=== PATIENT | male | born 1975 | race Hispanic/Latino ===

== ENCOUNTER 2021-07-09 11:47 | Emergency (ER) | payer OTHER, SELFPAY ==
[2021-07-09] MEDS ORDERED: Dexamethasone 10 MG/ML VIAL ONE (13:14)
[2021-07-09] MEDS ORDERED: Ondansetron ODT 4 MG TAB ONE (13:15)
[2021-07-09] MEDS ORDERED: Ketorolac Tromethamine 30 MG/ML VIAL ONE (13:15)
[2021-07-09] MEDS ORDERED: Acetaminophen 500 MG TAB ONE (14:32)
[2021-07-10 14:04] LABS: SARS-CoV-2 PCR by NAA DETECTED (NotDetected)
== END 2021-07-09 14:55 | disposition home or self-care (01) ==
LOC: BURERS 11:47
DX: U07.1 COVID-19 (principal)
CPT/HCPCS: 71045; 87804; 96372; J1100; J1885; J7620; Q0162; U0003; U0005

== ENCOUNTER 2021-07-13 20:03 | Emergency (ER) | payer SELFPAY ==
[~2021-07-13 20:03] MED LIST: Iopamidol 370 76% 100 ML VIAL ONE
[2021-07-13] MEDS ORDERED: Acetaminophen 500 MG TAB ONE (20:39)
[2021-07-13] MEDS ORDERED: Ibuprofen 800 MG TAB ONE (20:39)
[2021-07-13 20:42] LABS: #Lymphocytes 0.6 thou/uL (1.20-3.40); #Monocytes 0.3 thou/uL (0.11-0.59); #Neutrophils 6.1 thou/uL (1.40-6.50); %Basophils 0.2 % (0.0-1.0); %Lymphocytes 8.2 % (21.0-51.0); %Monocytes 4.8 % (0.0-10.0); %Neutrophils 86.7 % (42.0-75.0); Hemoglobin 14.4 g/dL (14.0-18.0); Mean Corpuscular HGB CONC 33.6 g/dL (32.0-36.0); Mean Corpuscular Hemoglobin 31.1 pg (27.0-31.0); Mean Corpuscular Volume 92.6 fL (78.0-98.0); Mean Platelet Volume 7.7 fL (7.4-10.4); Platelet Count 190 thou/uL (130-400); RBC Distribution Width 12.2 % (11.5-14.5); Red Blood Cell (RBC) Count 4.63 mill/uL (4.70-6.10); White Blood Cell (WBC) Count 7.1 thou/uL (4.8-10.8)
[2021-07-13 20:52] LABS: Bilirubin Small (Negative); Blood, Urine Moderate (Negative); Clarity Clear (Clear); Glucose, Urine (Dipstick) Negative (Negative); Ketone, Urine Trace mg/dL (Negative); Leukocyte Negative (Negative); Nitrite Negative (Negative); Protein, Urine (Dipstick) > or equal to 300 mg/dL (Neg-Trace); Specific Gravity, Urine 1.025 (1.005-1.030); Urobilinogen 0.2 mg/dL (Less than 2)
[2021-07-13 21:02] LABS: Squamous Epithelial 0-3 HPF (0-3); WBC/HPF 0-3 HPF (0-3); Yeast-Budding Rare HPF (None Seen)
[2021-07-13 21:03] LABS: ALT (SGPT) 37 U/L (8-55); AST (SGOT) 31 U/L (5-34); Albumin 3.8 g/dL (3.5-5.0); Alkaline Phosphatase 50 U/L (40-110); Anion Gap 15 mmol/L (10-20); BUN (Urea Nitrogen) 16 mg/dL (8.9-20.6); Bilirubin, Total 0.4 mg/dL (0.2-1.2); Calc. Creatinine Clearance 0 mL/min (70-130); Carbon Dioxide 22 mmol/L (22-29); Chloride 104 mmol/L (98-107); Glucose 108 mg/dL (70-105); Potassium 3.7 mmol/L (3.5-5.1); Protein, Total 6.8 g/dL (6.0-8.3); Sodium 137 mmol/L (136-145)
== END 2021-07-13 22:56 | disposition home or self-care (01) ==
LOC: BURERS 20:03
DX: U07.1 COVID-19 (principal); J12.82 Pneumonia due to coronavirus disease 2019
CPT/HCPCS: 71275; 80053; 81003; 81015; 83605; 84484; 85025; 85379; 87040; 93005; 94760; Q9967

== ENCOUNTER 2021-07-14 10:42 | Emergency (ER) | payer SELFPAY ==
[2021-07-14] MEDS ORDERED: Dexamethasone 10 MG/ML VIAL ONE (11:27)
[2021-07-14 11:50] LABS: #Lymphocytes 0.5 thou/uL (1.20-3.40); #Monocytes 0.2 thou/uL (0.11-0.59); #Neutrophils 6.2 thou/uL (1.40-6.50); %Basophils 0.2 % (0.0-1.0); %Lymphocytes 7.7 % (21.0-51.0); %Monocytes 3.2 % (0.0-10.0); %Neutrophils 88.9 % (42.0-75.0); Hemoglobin 14.8 g/dL (14.0-18.0); Mean Corpuscular HGB CONC 33.3 g/dL (32.0-36.0); Mean Corpuscular Hemoglobin 30.8 pg (27.0-31.0); Mean Corpuscular Volume 92.5 fL (78.0-98.0); Mean Platelet Volume 8.3 fL (7.4-10.4); Platelet Count 214 thou/uL (130-400); RBC Distribution Width 12.1 % (11.5-14.5); Red Blood Cell (RBC) Count 4.79 mill/uL (4.70-6.10)
[2021-07-14 12:02] LABS: ALT (SGPT) 38 U/L (8-55); AST (SGOT) 35 U/L (5-34); Albumin 3.8 g/dL (3.5-5.0); Alkaline Phosphatase 57 U/L (40-110); Anion Gap 15 mmol/L (10-20); BUN (Urea Nitrogen) 14 mg/dL (8.9-20.6); Bilirubin, Total 0.4 mg/dL (0.2-1.2); CRP (Inflammatory) 27.09 mg/dL (= or < 0.5); Calc. Creatinine Clearance 0 mL/min (70-130); Calcium 9.1 mg/dL (7.8-10.44); Carbon Dioxide 22 mmol/L (22-29); Chloride 102 mmol/L (98-107); Globulin 3.4 g/dL (2.4-3.5); Glucose 94 mg/dL (70-105); Potassium 4.2 mmol/L (3.5-5.1); Protein, Total 7.2 g/dL (6.0-8.3); Sodium 135 mmol/L (136-145)
[2021-07-14] MEDS ORDERED: Ibuprofen 800 MG TAB ONE (12:31)
[2021-07-14] MEDS ORDERED: Acetaminophen 500 MG TAB ONE (12:31)
== END 2021-07-14 15:28 | disposition short-term general hospital (02) ==
LOC: BURERS 10:42
DX: U07.1 COVID-19 (principal); F17.210 Nicotine dependence, cigarettes, uncomplicated
CPT/HCPCS: 71045; 80053; 83605; 85025; 85652; 86140; 93005; 94760; 96374; J1100

== ENCOUNTER 2021-07-25 22:28 | Emergency (ER) | payer SELFPAY ==
[2021-07-25] MEDS ORDERED: Aspirin Chewable 81 MG TAB ONE (22:38)
[2021-07-25] MEDS ORDERED: Nitroglycerin 0.4 MG TAB 1 EACH ONE ×2 (22:39→23:00)
[2021-07-25 22:57] LABS: #Basophils 0.1 thou/uL (0.0-0.2); #Eosinphils 0.1 thou/uL (0.0-0.7); #Lymphocytes 1.4 thou/uL (1.20-3.40); #Monocytes 0.7 thou/uL (0.11-0.59); #Neutrophils 4.5 thou/uL (1.40-6.50); %Basophils 1.6 % (0.0-1.0); %Eosinophils 1.5 % (0.0-10.0); %Lymphocytes 20.4 % (21.0-51.0); %Neutrophils 66.6 % (42.0-75.0); Hemoglobin 14.3 g/dL (14.0-18.0); Mean Corpuscular Hemoglobin 31.3 pg (27.0-31.0); Mean Corpuscular Volume 92.1 fL (78.0-98.0); Mean Platelet Volume 7.8 fL (7.4-10.4); Platelet Count 285 thou/uL (130-400); RBC Distribution Width 12.5 % (11.5-14.5); Red Blood Cell (RBC) Count 4.58 mill/uL (4.70-6.10); White Blood Cell (WBC) Count 6.7 thou/uL (4.8-10.8)
[2021-07-25 23:15] LABS: ALT (SGPT) 59 U/L (8-55); AST (SGOT) 23 U/L (5-34); Albumin 3.4 g/dL (3.5-5.0); Alkaline Phosphatase 88 U/L (40-110); Anion Gap 13 mmol/L (10-20); BUN (Urea Nitrogen) 12 mg/dL (8.9-20.6); Bilirubin, Total 0.3 mg/dL (0.2-1.2); Calc. Creatinine Clearance 0 mL/min (70-130); Calcium 9.3 mg/dL (7.8-10.44); Carbon Dioxide 22 mmol/L (22-29); Chloride 109 mmol/L (98-107); Globulin 2.4 g/dL (2.4-3.5); Glucose 110 mg/dL (70-105); Potassium 4.4 mmol/L (3.5-5.1); Protein, Total 5.8 g/dL (6.0-8.3); Sodium 140 mmol/L (136-145)
== END 2021-07-26 00:10 | disposition short-term general hospital (02) ==
LOC: BURERS 22:28
DX: R07.9 Chest pain, unspecified (principal); R94.31 Abnormal electrocardiogram [ECG] [EKG]; F17.210 Nicotine dependence, cigarettes, uncomplicated
CPT/HCPCS: 71045; 80053; 83880; 84484; 85025; 93005